=== PATIENT | female | born 1950 | race Hispanic/Latino ===

== ENCOUNTER 2017-03-30 17:54 | Emergency (ER) | payer SELFPAY ==
[2017-03-30] MEDS ORDERED: DUONEB *Not for PRN Use IH ONE (18:11)
[2017-03-30 20:01] LABS: Basophils # (Auto) 0.1 K/mm3 (0.0-0.1); Basophils % (Auto) 1.1 % (0.0-1.8); Eosinophils # (Auto) 0.1 K/mm3 (0.0-0.4); Eosinophils % (Auto) 1.6 % (0.0-4.3); Hematocrit 45.4 % (30.3-42.9); Hemoglobin 14.7 gm/dl (10.1-14.3); Lymphocytes # (Auto) 1.7 K/mm3 (1.2-5.4); Lymphocytes % (Auto) 30.2 % (13.4-35.0); Mean Corpuscular HGB Conc 33 % (30-34); Mean Corpuscular Hemoglobin 30 pg (28-32); Mean Corpuscular Volume 93 fl (79-97); Monocytes # (Auto) 0.5 K/mm3 (0.0-0.8); Monocytes % (Auto) 9.5 % (0.0-7.3); Platelet Count 272 K/mm3 (140-440); Red Blood Count 4.86 M/mm3 (3.65-5.03); Red Cell Distribution Width 15.3 % (13.2-15.2)
--- NOTE | 2017-03-30 20:10 | XRay Report ---
FINAL REPORT EXAM: XR CHEST ROUTINE 2V HISTORY: Shortness of breath TECHNIQUE: PA and lateral views of the chest PRIORS: None. FINDINGS: Lines, tubes, and devices: N/A Lungs and pleura: Trachea is normal in position. Lungs are clear of infiltrate, pleural effusion, vascular congestion, or pneumothorax. Cardiomediastinal silhouette: Cardiac and mediastinal silhouettes are unremarkable. Other: Bony structures demonstrate a dextroscoliosis of the mid thoracic spine. IMPRESSION: No acute cardiopulmonary process seen.
[2017-03-30 20:21] LABS: BUN/Creatinine Ratio 10; Blood Urea Nitrogen 6 mg/dL (7-17); Calcium 8.1 mg/dL (8.4-10.2); Hemolysis Index 6
[2017-03-31] MEDS ORDERED: ATROVENT IH ONE (01:03)
[2017-03-31] MEDS ORDERED: XOPENEX IH ONE (01:03)
--- NOTE | 2017-03-31 01:08 | Emergency Department Report ---
ED Shortness of Breath HPI - General Chief Complaint: Dyspnea/Respdistress Stated Complaint: SOB Time Seen by Provider: 03/31/17 00:55 Source: patient, family Mode of arrival: Ambulatory Limitations: No Limitations - History of Present Illness Initial Comments: Patient is 66 years old female history of asthma, COPD and hypertension. Patient is a heavy smoker. She presented to the ER with 3 day history of shortness of breath difficulty breathing and productive cough with greenish sputum. Patient denied any fever or chest pain. No nausea no vomiting. MD Complaint: shortness of breath, cough -: days(s) Known History Of: COPD, asthma Associated Symptoms: cough, sputum production, lower abdominal swelling - Related Data Allergies Allergy/AdvReac Type Severity Reaction Status Date / Time No Known Allergies Allergy Unverified 03/30/17 18:17 ED Review of Systems ROS: Stated complaint: SOB Other details as noted in HPI Comment: All other systems reviewed and negative Constitutional: denies: chills, fever ENT: denies: throat pain Respiratory: cough, orthopnea, shortness of breath, SOB with exertion, SOB at rest, wheezing. denies: stridor Cardiovascular: dyspnea on exertion, orthopnea, edema, paroxysmal nocturnal dyspnea. denies: chest pain, palpitations Gastrointestinal: denies: abdominal pain, nausea, vomiting, diarrhea, constipation, hematemesis, melena, hematochezia Genitourinary: denies: urgency, dysuria, frequency, hematuria Musculoskeletal: denies: back pain, joint swelling Neurological: denies: headache, weakness, numbness, paresthesias, confusion ED Past Medical Hx - Past Medical History Previous Medical History?: Yes Hx Hypertension: Yes Hx Arthritis: Yes Hx Asthma: Yes Hx COPD: Yes - Surgical History Past Surgical History?: No - Social History Smoking Status: Current Every Day Smoker Substance Use Type: Alcohol, Prescribed ED Physical Exam - General Limitations: No Limitations General appearance: alert, in distress - Head Head exam: Present: atraumatic, normocephalic, normal inspection - Eye Eye exam: Present: PERRL - ENT ENT exam: Present: normal exam, normal orophraynx, mucous membranes moist - Neck Neck exam: Present: normal inspection, full ROM. Absent: tenderness, meningismus, lymphadenopathy - Respiratory Respiratory exam: Present: respiratory distress, wheezes, rhonchi, accessory muscle use, decreased breath sounds, prolonged expiratory. Absent: stridor, chest wall tenderness - Cardiovascular Cardiovascular Exam: Present: regular rate, normal rhythm, normal heart sounds - GI/Abdominal GI/Abdominal exam: Present: soft, normal bowel sounds. Absent: distended, tenderness, guarding, rebound, rigid, organomegaly, mass, bruit, pulsatile mass , hernia - Extremities Exam Extremities exam: Present: normal inspection, full ROM, normal capillary refill , pedal edema. Absent: calf tenderness - Back Exam Back exam: Present: normal inspection, full ROM. Absent: tenderness, CVA tenderness (R), CVA tenderness (L), muscle spasm, paraspinal tenderness, vertebral tenderness, rash noted - Neurological Exam Neurological exam: Present: alert, oriented X3, CN II-XII intact, normal gait, reflexes normal. Absent: motor sensory deficit - Psychiatric Psychiatric exam: Present: normal mood - Skin Skin exam: Present: warm, intact, normal color ED Course Vital Signs 03/30/17 03/30/17 03/30/17 18:12 18:25 18:41 Temperature 99.5 F Pulse Rate 90 Pulse Rate [ 88 85 Bilateral Upper Lobe] Respiratory 22 Rate Respiratory 20 18 Rate [Bilateral Upper Lobe] Blood Pressure 153/81 O2 Sat by Pulse 91 Oximetry 03/31/17 03/31/17 03/31/17 00:16 00:30 00:31 Temperature Pulse Rate 87 88 Pulse Rate [ Bilateral Upper Lobe] Respiratory 24 22 Rate Respiratory Rate [Bilateral Upper Lobe] Blood Pressure 176/68 176/68 O2 Sat by Pulse 98 95 Oximetry 03/31/17 03/31/17 03/31/17 00:45 01:00 01:15 Temperature Pulse Rate 86 92 H 94 H Pulse Rate [ Bilateral Upper Lobe] Respiratory 22 25 H 26 H Rate Respiratory Rate [Bilateral Upper Lobe] Blood Pressure 174/76 175/72 176/96 O2 Sat by Pulse 98 99 94 Oximetry 03/31/17 03/31/17 03/31/17 01:30 01:46 01:54 Temperature Pulse Rate 90 Pulse Rate [ 89 94 H Bilateral Upper Lobe] Respiratory 27 H Rate Respiratory 24 24 Rate [Bilateral Upper Lobe] Blood Pressure 175/72 O2 Sat by Pulse 100 Oximetry 03/31/17 03/31/17 02:00 02:30 Temperature Pulse Rate 83 95 H Pulse Rate [ Bilateral Upper Lobe] Respiratory 24 28 H Rate Respiratory Rate [Bilateral Upper Lobe] Blood Pressure 176/96 176/96 O2 Sat by Pulse 91 90 Oximetry - Reevaluation(s) Reevaluation #1: 03/31/17 03:45 Patient stated that she is feeling much better, on exam link this clear on both sides with good air entry no wheezing. Patient advised to use however inhaler and I will prescribe her steroid and Levaquin. I also counseled the patient about her smoking cessation. ED Medical Decision Making - Lab Data Result diagrams: 03/30/17 19:26 03/30/17 19:26 - EKG Data -: EKG Interpreted by Me EKG shows normal: sinus rhythm Rate: normal - EKG Data Interpretation: no acute changes - Radiology Data Radiology results: report reviewed Referring Physician: RODRICK ODOM Patient Name: FERNANDO QUIROZ Date of : 1950 Sex: Female Report Date: 2017-03-30 Report Status: [place] [address] XRay Report Signed Patient: FERNANDO QUIROZ MR#: [id number] : 1950 Acct:[id number] Age/Sex: 66 / F ADM Date: 03/30/17 Loc: ED Attending Dr: Ordering Physician: RODRICK ODOM MD Date of Service: 03/30/17 Procedure(s): XR chest routine 2V Accession Number(s): [id number] cc: RODRICK ODOM MD Fluoro Time In Minutes: FINAL REPORT EXAM: XR CHEST ROUTINE 2V HISTORY: Shortness of breath TECHNIQUE: PA and lateral views of the chest PRIORS: None. FINDINGS: Lines, tubes, and devices: N/A Lungs and pleura: Trachea is normal in position. Lungs are clear of infiltrate, pleural effusion, vascular congestion, or pneumothorax. Cardiomediastinal silhouette: Cardiac and mediastinal silhouettes are unremarkable. Other: Bony structures demonstrate a dextroscoliosis of the mid thoracic spine. IMPRESSION: No acute cardiopulmonary process seen. Transcribed By: [facility] Dictated By: JOHN COLE MD Electronically Authenticated By: JOHN COLE MD Signed Date/Time: 03/30/171606 DD/ 06 TD/TT: 03/30/17 1607 Critical care attestation.: If time is entered above; I have spent that time in minutes in the direct care of this critically ill patient, excluding procedure time. ED Disposition Clinical Impression: Shortness of breath, Asthma exacerbation, Acute bronchitis Disposition: TO HOME OR SELFCARE Is pt being admited?: No Condition: Stable Instructions: Acute Bronchitis (ED), Asthma (ED) Referrals: PRIMARY CARE, [Primary Care Provider] - 3-5 Days
[2017-03-31 01:30] VITALS: BP 176/96
== END 2017-03-31 04:10 | disposition home or self-care (01) ==
LOC: ED 17:54
DX: J45.901 Unspecified asthma with (acute) exacerbation (principal); J20.9 Acute bronchitis, unspecified; R19.09 Other intra-abdominal and pelvic swelling, mass and lump; I10 Essential (primary) hypertension; M19.90 Unspecified osteoarthritis, unspecified site; F17.200 Nicotine dependence, unspecified, uncomplicated
CPT/HCPCS: 36415; 71046; 80048; 83880; 84484; 85025; 93005; 93010; 94640; 96374; 99284; J2930